=== PATIENT | female | born 1990 | race Caucasian/White ===

== ENCOUNTER 2020-07-23 12:11 | Emergency (ER) | payer OTHER ==
[~2020-07-23] VITALS: Ht 172.7 cm; Wt 85.1 kg
[2020-07-23] MEDS ORDERED: ASPIRIN 81 MG TABLET CHEW PO ONE (13:00)
--- NOTE | 2020-07-23 13:00 | NUR ---
PT TO ROOM 35 W/ C/O CP STARTED YESTERDAY, SOB. PT ALSO STATES SHE HAS STARTED FEELING NAUSEOUS THIS AM. NO EMESIS. DENIES DIARRHEA. 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 PT RESTING ON GURNEY. NADN. MONITORS APPLIED. VSS. PIV INITIATED. WARM BLANKET PROVIDED. RHODA ANTHONY AT BEDSIDE FOR EVAL.
[2020-07-23] MEDS ORDERED: ASPIRIN 81 MG TABLET CHEW ONE (13:03)
[2020-07-23 13:22] LABS: ALBUMIN 4.3 g/dL (3.4-5.0); ANION GAP 7 mmol/L (5-15); BASOPHILS % (AUTO) 1 % (0-1); CALCIUM 9.4 mg/dL (8.5-10.1); CHLORIDE 108 mmol/L (98-107); EOSINOPHILS % (AUTO) 1 % (1-7); LYMPHOCYTES % (AUTO) 26 % (22-44); MEAN CORPUSCULAR HEMOGLOBIN 28.9 pg (27.0-34.8); MEAN CORPUSCULAR HGB CONC 34.1 g/dL (32.4-35.8); MEAN PLATELET VOLUME 7.4 fL (7.4-10.4); MONOCYTES % (AUTO) 5 % (2-9); NEUTROPHILS % (AUTO) 67 % (42-75); PLATELET COUNT 441 x10^3/uL (130-400); RED BLOOD COUNT 5.11 x10^6/uL (3.82-5.3); RED CELL DISTRIBUTION WIDTH 13.6 % (9.6-15.2)
[2020-07-23 13:24] LABS: MD NO
--- NOTE | 2020-07-23 13:27 | NUR ---
PT RESTING ON GURNEY. NADN. HOROWITZ.
[2020-07-23 13:28] LABS: ALANINE AMINOTRANSFERASE 91 U/L (12-78); ALKALINE PHOSPHATASE 191 U/L (45-117); BILIRUBIN,TOTAL 0.7 mg/dL (0.2-1.0); TOTAL PROTEIN 8.2 g/dL (6.4-8.2); TROPONIN I < 0.015 ng/mL (0.000-0.045)
--- NOTE | 2020-07-23 13:41 | NUR ---
PT CHART REVIEWED AND PLACED FOR RECHECK.
[2020-07-23 14:36] VITALS: BP 129/94
--- NOTE | 2020-07-23 14:37 | NUR ---
PT RESTING ON GURNEY. NADN. HOROWITZ.
== END 2020-07-23 15:01 | disposition home or self-care (01) ==
LOC: ED 13:37
DX: R07.2 Precordial pain (principal); R11.0 Nausea; R94.31 Abnormal electrocardiogram [ECG] [EKG]
CPT/HCPCS: 36415; 71045; 80053; 84484; 84703; 85025; 93005; 99285

== ENCOUNTER 2020-08-24 13:43 | Emergency (ER) | payer OTHER ==
[~2020-08-24] VITALS: Ht 172.7 cm; Wt 84.9 kg
--- NOTE | 2020-08-24 14:34 | NUR ---
desktop publishing associate: pt from lobby to room [id number]
[2020-08-24 15:02] LABS: BASOPHILS % (AUTO) 1 % (0-1); EOSINOPHILS % (AUTO) 1 % (1-7); LYMPHOCYTES % (AUTO) 23 % (22-44); MD NO; MEAN CORPUSCULAR HEMOGLOBIN 28.7 pg (27.0-34.8); MEAN CORPUSCULAR HGB CONC 33.4 g/dL (32.4-35.8); MEAN PLATELET VOLUME 7.7 fL (7.4-10.4); MONOCYTES % (AUTO) 7 % (2-9); NEUTROPHILS % (AUTO) 67 % (42-75); PLATELET COUNT 357 x10^3/uL (130-400); RED BLOOD COUNT 4.66 x10^6/uL (3.82-5.3); RED CELL DISTRIBUTION WIDTH 14.7 % (9.6-15.2)
[2020-08-24 15:10] LABS: MICROSCOPIC AUTO
[2020-08-24 15:11] LABS: ALBUMIN 3.8 g/dL (3.4-5.0); ANION GAP 4 mmol/L (5-15); CALCIUM 9.2 mg/dL (8.5-10.1); CHLORIDE 107 mmol/L (98-107); CREATININE 0.92 mg/dL (0.55-1.02)
[2020-08-24 16:54] VITALS: BP 124/69
== END 2020-08-24 16:59 | disposition home or self-care (01) ==
LOC: ED 16:05
DX: O46.91 Antepartum hemorrhage, unspecified, first trimester (principal); R10.30 Lower abdominal pain, unspecified; Z3A.01 Less than 8 weeks gestation of pregnancy
CPT/HCPCS: 36415; 76801; 80048; 81001; 82040; 84702; 85025; 86901; 87086; 99284